=== PATIENT | male | born 1960 | race Two or more races ===

== ENCOUNTER 2018-06-11 14:09 | Outpatient (RCR) | payer MEDICARE, OTHER | END 2018-06-13 | disposition home or self-care (01) | LOC: WCC 14:09 | DX: L97.528 Non-pressure chronic ulcer of other part of left foot with other specified severity (principal); L60.9 Nail disorder, unspecified; B35.1 Tinea unguium; R26.89 Other abnormalities of gait and mobility; G80.9 Cerebral palsy, unspecified; G40.909 Epilepsy, unspecified, not intractable, without status epilepticus; G82.50 Quadriplegia, unspecified | CPT/HCPCS: 11720 ==

== ENCOUNTER 2018-06-18 13:39 | Outpatient (RCR) | payer MEDICARE, OTHER | END 2018-07-11 | disposition home or self-care (01) | LOC: WCC 13:39 | DX: L97.528 Non-pressure chronic ulcer of other part of left foot with other specified severity (principal); L60.9 Nail disorder, unspecified; B35.1 Tinea unguium; R26.89 Other abnormalities of gait and mobility; Z88.8 Allergy status to other drugs, medicaments and biological substances; G40.909 Epilepsy, unspecified, not intractable, without status epilepticus; G82.50 Quadriplegia, unspecified | CPT/HCPCS: G0463 ==

== ENCOUNTER 2019-03-25 13:12 | Outpatient (RCR) | payer MEDICARE, OTHER | END 2019-04-12 | disposition home or self-care (01) | LOC: WCC 13:12 | DX: L89.890 Pressure ulcer of other site, unstageable (principal); R26.89 Other abnormalities of gait and mobility; M20.40 Other hammer toe(s) (acquired), unspecified foot; G80.9 Cerebral palsy, unspecified; G40.909 Epilepsy, unspecified, not intractable, without status epilepticus; G82.50 Quadriplegia, unspecified | CPT/HCPCS: G0463 ==

== ENCOUNTER 2019-04-22 13:22 | Outpatient (RCR) | payer MEDICARE, OTHER | END 2019-05-13 | disposition home or self-care (01) | LOC: WCC 13:22 | DX: L89.890 Pressure ulcer of other site, unstageable (principal); R26.89 Other abnormalities of gait and mobility; G80.9 Cerebral palsy, unspecified; G40.909 Epilepsy, unspecified, not intractable, without status epilepticus | CPT/HCPCS: G0463 ==

== ENCOUNTER 2019-05-27 12:40 | Outpatient (RCR) | payer MEDICARE, OTHER | END 2019-06-13 | disposition home or self-care (01) | LOC: WCC 12:40 | DX: L59.8 Other specified disorders of the skin and subcutaneous tissue related to radiation (principal); T86.828 Other complications of skin graft (allograft) (autograft); C44.41 Basal cell carcinoma of skin of scalp and neck; B20 Human immunodeficiency virus [HIV] disease; I10 Essential (primary) hypertension | CPT/HCPCS: G0463 ==